=== PATIENT | male | born 1990 | race Caucasian/White ===

== ENCOUNTER → 2017-04-21 | Emergency (ER) | payer OTHER ==
--- NOTE | 2017-04-21 17:08 | PDOC ---
Rapid Medical Evaluation Time Seen by Provider: 04/21/17 17:06 Medical Evaluation: Allergies Allergy/AdvReac Type Severity Reaction Status Date / Time No Known Allergies Allergy Verified 04/21/17 17:06 04/21/17 17:06 26 year old male with history of anxiety/panic who presents complaining of headaches, blurred vision, nausea, lightheadedness, high blood pressure on home BP monitor. Took BP meds for about one week last year, but discontinued by PCP, told HTN was due to anxiety only. Has seen neurologist for headaches and has been to Urgent Care for dizziness. BP here 148/99. -EKG -To Main ED for further evaluation
[2017-04-21 17:10] VITALS: BMI 29.9
--- NOTE | 2017-04-21 19:27 | PDOC ---
History of Present Illness - General Chief Complaint: Lightheaded Stated Complaint: BLOOD PESSURE PROBLEM Time Seen by Provider: 04/21/17 17:06 History Source: Patient Exam Limitations: No Limitations - History of Present Illness Initial Comments: 04/21/17 19:22 26yo Male patient w/ PmHx: Anxiety/Panic disorder presents to ED c/o frequent h/ a x 2 months. Patient states he has been seen by Neurology Dr. Eren COULTER and was referred to physical therapy. Patient states he had an episode last week while driving; he experienced blurred vision, dizziness, and went to Urgent Care. Patient states his symptoms improved once he was evaluated. He also states he was prescribed Fioricet by his PCP but has not taken it because he was informed that it is habit forming. Patient has been using OTC Tylenol for symptoms management but it seem to not be working as effective. Patient reports at this time, his symptoms have gotten better and feels at ease. He denies CP, abd pain, n/v/d, fever, back pain, diff breathing, rash, change in vision or any other complaints at this time. Neurology- Dr. Jason Timing/Duration: reports: other (Ongoing for past 2 months.) Severity: Yes: mild Episode Description: See HPI Associated Symptoms: denies: denies symptoms, confusion, fatigue, fever/chills, insomnia, loss of consciousness, muscle spasms, nausea/vomiting, numbness in legs/feet, paresthesia, ringing in ears, seizures, sleepy, slurred speech, tingling in legs/feet, trouble walking, vision changes, weakness, other Past History - Travel Traveled outside of the country in the last 30 days: No Close contact w/someone who was outside of country & ill: No - Past Medical History Allergies/Adverse Reactions: Allergies Allergy/AdvReac Type Severity Reaction Status Date / Time No Known Allergies Allergy Verified 04/21/17 17:06 HTN: Yes (BORDER LINE) Psychiatric Problems: Yes (ANXEITY) - Psycho/Social/Smoking Cessation Hx Anxiety: No Suicidal Ideation: No Smoking History: Never smoked Have you smoked in the past 12 months: No Information on smoking cessation initiated: No Hx Alcohol Use: No Drug/Substance Use Hx: No Substance Use Type: None Neuro Specific PMHX - Complaint Specific PMHX Herniated Disk: No Laminectomy: No Migraine: No Multiple Sclerosis: No Neuropathy: No TIA: No Review of Systems - Review of Systems Able to Perform ROS?: Yes Is the patient limited Kiswahili proficient: No Constitutional: No: Chills, Fever, Unexplained wgt Loss HEENTM: No: Eye Pain, Blurred Vision, Recent change in vision, Double Vision, Nose Congestion, Throat Pain, Difficulty Swallowing Respiratory: No: Cough, Shortness of Breath, Stridor, Wheezing Cardiac (ROS): No: Chest Pain, Lightheadedness, Palpitations, Syncope, Chest Tightness ABD/GI: No: Diarrhea, Nausea, Poor Appetite, Poor Fluid Intake, Rectal Bleeding , Vomiting, Abdominal cramping : No: Burning, Dysuria, Discharge, Frequency, Flank Pain, Hematuria, Pain, Urgency, Testicular Swelling, Testicular Pain Musculoskeletal: No: Symptoms Reported, See HPI, Back Pain, Gout, Joint Pain, Joint Swelling, Muscle Pain, Muscle Weakness, Neck Pain, Joint Stiffness, Other Integumentary: No: Symptoms Reported, See HPI, Bruising, Change in Color, Change in Hair/Nails, Dryness, Erythema, Flushing, Lesions, Lumps, Pallor, Pruritus, Rash, Sweating, Other Neurological: Yes: Headache. No: Symptoms reported, See HPI, Numbness, Paresthesia, Pre-Existing Deficit, Seizure, Tingling, Tremors, Weakness, Unsteady Gait, Ataxia, Dizziness, Other Psychiatric: Yes: Anxiety. No: Depression, Frequent Crying, Stressors, Sleep Pattern Change, Emotional Problems, Mood Swings, Change in Appetite, Other Endocrine: No: Symptoms Reported, See HPI, Excessive Sweating, Flushing, Intolerance to Cold, Intolerance to Heat, Increased Hunger, Increased Thirst, Increased Urine, Unexplained Weight Gain, Unexplained Weight Loss, Change in Weight, Other Hematologic/Lymphatic: No: Symptoms Reported, See HPI, Anemia, Blood Clots, Easy Bleeding, Easy Bruising, Bleeding Diathesis, Lymph Node Abnormalities, Swollen Glands, Other All Other Systems: Reviewed and Negative *Physical Exam - Vital Signs Last Vital Signs Temp Pulse Resp BP Pulse Ox 97.9 F 73 18 148/99 100 04/21/17 17:07 04/21/17 17:07 04/21/17 17:07 04/21/17 17:07 04/21/17 17:07 - Physical Exam General Appearance: Yes: Nourished, Appropriately Dressed. No: Apparent Distress, Mild Distress, Moderate Distress, Severe Distress HEENT: positive: EOMI, GEOVANI, Normal ENT Inspection, Normal Voice, Symmetrical, TMs Normal, Pharynx Normal. negative: Photophobia, Pharyngeal Erythema, Tonsillar Exudate, Tonsillar Erythema, Nasal Congestion, Rhinorrhea, Orbits, TM Bulging, TM Dull, TM Erythema Neck: positive: Trachea midline, Normal Thyroid, Supple. negative: Rigid, Lymphadenopathy (R), Lymphadenopathy (L) Respiratory/Chest: positive: Lungs Clear, Normal Breath Sounds. negative: Chest Tender, Respiratory Distress, Accessory Muscle Use, Labored Respiration, Rapid RR, Rhonchi, Stridor, Wheezing Cardiovascular: positive: Regular Rhythm, Regular Rate Gastrointestinal/Abdominal: positive: Normal Bowel Sounds, Soft. negative: Tender, Flat, Distended, Guarding, Rebound, Tenderness Musculoskeletal: positive: Normal Inspection. negative: CVA Tenderness, Decreased Range of Motion, Vertebral Tenderness Extremity: positive: Normal Capillary Refill, Normal Inspection, Normal Range of Motion. negative: Pedal Edema, Swelling, Calf Tenderness, Erythema, Inflammation Integumentary: positive: Normal Color, Dry, Warm. negative: Erythema, Diaphoresis, Rash, Swelling Neurologic: positive: control panel builder II-XII NML intact, Fully Oriented, Alert, Normal Mood/ Affect, Normal Response, Motor Strength 5/5. negative: Numbness, Confused, Disoriented *DC/Admit/Observation/Transfer Diagnosis at time of Disposition: Migraine Qualifiers: Migraine type: without aura Status migrainosus presence: without status migrainosus Intractability: not intractable Qualified Code(s): G43.009 - Migraine without aura, not intractable, without status migrainosus - Discharge Dispostion Disposition: HOME Condition at time of disposition: Improved Admit: No - Referrals Referrals: Philly Cuevas MD [Primary Care Provider] - Armaan Horton MD [Staff Physician] - - Patient Instructions Printed Discharge Instructions: DI for Migraine, Migraine Headaches ( Alternative Therapy) Additional Instructions: FOLLOW UP WITH DR. CUEVAS (PCP) AND DR. JASON (NEUROLOGY) THIS WEEK FOR FURTHER EVALUATION. CALL TO SCHEDULE YOUR APPOINTMENT. DRINK PLENTY WATER, STAY HYDRATED. TAKE 1/2 TAB OF FIORICET FOR HEADACHE WITH PLENTY WATER AND REST. TRY DEEP BREATHING EXERCISES WHEN FEELING ANXIOUS. FOLLOW UP WITH DR. HORTON (PSYCHIATRY). CALL TO SCHEDULE APPOINTMENT TO ESTABLISH CARE. RETURN IF SYMPTOMS WORSEN, OR ANY CONCERNS FOR FURTHER EVALUATION. Print Language: PERUVIAN
--- NOTE | 2017-04-21 19:39 | PDOC ---
*Physical Exam - Vital Signs Last Vital Signs Temp Pulse Resp BP Pulse Ox 97.9 F 73 18 148/99 100 04/21/17 17:07 04/21/17 17:07 04/21/17 17:07 04/21/17 17:07 04/21/17 17:07 Medical Decision Making - Medical Decision Making 04/21/17 19:38 agree with care from [facility] Aaron *DC/Admit/Observation/Transfer Diagnosis at time of Disposition: Migraine Qualifiers: Migraine type: without aura Status migrainosus presence: without status migrainosus Intractability: not intractable Qualified Code(s): G43.009 - Migraine without aura, not intractable, without status migrainosus - Referrals Referrals: Armaan Horton MD [Staff Physician] - Philly Cuevas MD [Primary Care Provider] - - Patient Instructions Printed Discharge Instructions: Migraine Headaches (Alternative Therapy), DI for Migraine Additional Instructions: FOLLOW UP WITH DR. CUEVAS (PCP) AND DR. BOWERS (NEUROLOGY) THIS WEEK FOR FURTHER EVALUATION. CALL TO SCHEDULE YOUR APPOINTMENT. DRINK PLENTY WATER, STAY HYDRATED. TAKE 1/2 TAB OF FIORICET FOR HEADACHE WITH PLENTY WATER AND REST. TRY DEEP BREATHING EXERCISES WHEN FEELING ANXIOUS. FOLLOW UP WITH DR. HORTON (PSYCHIATRY). CALL TO SCHEDULE APPOINTMENT TO ESTABLISH CARE. RETURN IF SYMPTOMS WORSEN, OR ANY CONCERNS FOR FURTHER EVALUATION. Print Language: ROMANIAN - Post Discharge Activity
[2017-04-21 20:00] VITALS: BP 145/88; PULSE 59; TEMP 98
--- NOTE | 2017-04-22 11:49 | EKG ---
Test Reason : Blood Pressure : / mmHG Vent. Rate : 057 BPM Atrial Rate : 057 BPM P-R Int : 138 ms QRS Dur : 100 ms QT Int : 414 ms P-R-T Axes : 045 066 042 degrees QTc Int : 402 ms SINUS BRADYCARDIA OTHERWISE NORMAL ECG NO PREVIOUS ECGS AVAILABLE Confirmed by KENDAL TREVINO MD ([id number]) on 04/22/2017 11:49:32 AM Referred By: VIBHA Confirmed By:KENDAL TREVINO MD
== END | disposition home or self-care (01) ==
LOC: JER 16:57
DX: G43.009 Migraine without aura, not intractable, without status migrainosus (principal); F41.9 Anxiety disorder, unspecified
CPT/HCPCS: 93005; 93010; 99282-25

== ENCOUNTER 2018-07-28 19:12 | Emergency (ER) | payer OTHER ==
--- NOTE | 2018-07-28 19:36 | PDOC ---
Rapid Medical Evaluation Chief Complaint: Chest Pain Time Seen by Provider: 07/28/18 19:33 Medical Evaluation: Allergies Allergy/AdvReac Type Severity Reaction Status Date / Time No Known Allergies Allergy Verified 04/21/17 17:06 07/28/18 19:33 I have performed a brief in person evaluation of this patient. The patient presents with a CC of: "chest burning" HPI: Pt is a 28 YO male who states over the past week he has had chest "burning " worse with exercise and food. Pt was evaluated at , was given Carafate and a "reflux med." Pt states these medications are not helping. Pt denies hx of H. Pylori. Denies CV hx. Denies hx of IV drugs. PE: Skin: Clear Heart: RRR Lungs: Clear MS: Moves all extremities without difficulty Neuro: Appropriate affect Psych: appropriate affect I have ordered: CV protocol The patient will proceed to the ED for further evaluation. Discharge Disposition - Diagnosis Chest pain Qualifiers: Chest pain type: unspecified Qualified Code(s): R07.9 - Chest pain, unspecified - Referrals - Patient Instructions - Post Discharge Activity
[2018-07-28 19:37] VITALS: TEMP 97.7; BMI 28.4
[2018-07-28 20:09] LABS: BASO % 0.5 % (0-2.0); EOS % 1.3 % (0-4.5); HEMATOCRIT 42.4 % (35.4-49); HEMOGLOBIN 14.8 GM/dL (11.7-16.9); LYMPH % 22.4 % (8-40); MCH 31.4 pg (25.7-33.7); MCHC 34.8 g/dl (32.0-35.9); MEAN CELL VOLUME 90.2 fl (80-96); MEAN PLT VOLUME 7.6 fl (7.5-11.1); MONO % 6.4 % (3.8-10.2); NEUT % 69.4 % (42.8-82.8); PLATELET COUNT 309 K/MM3 (134-434); RDW 12.8 % (11.9-15.9); WHITE BLOOD COUNT 9.6 K/mm3 (4.0-10.0)
[2018-07-28 20:30] LABS: ALBUMIN 4.3 g/dl (3.4-5.0); ANION GAP 10 MMOL/L (8-16); BLOOD UREA NITROGEN 13 mg/dL (7-18); CALCIUM 9.2 mg/dL (8.5-10.1); CHLORIDE 106 mmol/L (98-107); CO2 25 mmol/L (21-32); CREATININE 0.8 mg/dL (0.55-1.3); POTASSIUM 4.2 mmol/L (3.5-5.1); SGOT/AST 17 U/L (15-37); SGPT/ALT 28 U/L (13-61); SODIUM 141 mmol/L (136-145)
[2018-07-28 20:34] LABS: ALK PHOS 67 U/L (45-117); BILIRUBIN,TOTAL 0.5 mg/dL (0.2-1); TOT PROT 7.9 g/dl (6.4-8.2)
[2018-07-28] MEDS ORDERED: METOCLOPRAMIDE HCL INJECTION 10 MG/2 ML VIAL IVPB ONE (20:44)
[2018-07-28] MEDS ORDERED: SODIUM CHLORIDE 1,000 ML IV STA (20:44)
[2018-07-28] MEDS ORDERED: FAMOTIDINE 20 MG/50 ML IVPB 20 MG/50 ML MG IVPB ONE ×2 (20:44→20:53)
[2018-07-28] MEDS ORDERED: MAG HYDROX/AL HYDROX/SIMETH 30 ML UNIT-DOSE CUP PO ONE (20:45)
--- NOTE | 2018-07-28 20:51 | PDOC ---
History of Present Illness - General Chief Complaint: Chest Pain Stated Complaint: CHEST PAIN Time Seen by Provider: 07/28/18 19:33 History Source: Patient Exam Limitations: No Limitations - History of Present Illness Initial Comments: 07/28/18 20:47 Patient is a 28-year-old male with past medical history of acid reflux, who presents to the emergency department today for burning chest pain. Patient states that this started approximately 1 week ago. He states that he was evaluated at an urgent care for her symptoms and was given Carafate and famotidine. He states that these medications have only helped slightly. He states that the pain is worse after eating and after exercising. He states he has changed his diet to avoid fatty foods and spicy foods. He also admits to headache. Denies fevers, chills, shortness of breath, difficulty breathing, nausea, vomiting, diarrhea, constipation, urinary symptoms. Past History - Travel Traveled outside of the country in the last 30 days: No Close contact w/someone who was outside of country & ill: No - Past Medical History Allergies/Adverse Reactions: Allergies Allergy/AdvReac Type Severity Reaction Status Date / Time No Known Allergies Allergy Verified 07/28/18 19:37 Home Medications: Ambulatory Orders Alprazolam [Xanax] 0.5 mg PO DAILY PRN 07/28/18 Famotidine 20 mg PO BID #20 tablet 07/28/18 Famotidine [Pepcid] 20 mg PO DAILY 07/28/18 Sucralfate [Carafate -] 1 gm PO DAILY 07/28/18 COPD: No DVT: No HTN: Yes (BORDER LINE) Psychiatric Problems: Yes (ANXEITY) - Suicide/Smoking/Psychosocial Hx Smoking History: Never smoked Have you smoked in the past 12 months: No Information on smoking cessation initiated: No Hx Alcohol Use: Yes (social) Drug/Substance Use Hx: No Substance Use Type: None Review of Systems - Review of Systems Able to Perform ROS?: Yes Comments:: 07/28/18 20:43 CONSTITUTIONAL: Absent: fever, chills, diaphoresis, generalized weakness, malaise, loss of appetite HEENT: Absent: rhinorrhea, nasal congestion, throat pain, throat swelling, difficulty swallowing, mouth swelling, ear pain, eye pain, visual Changes CARDIOVASCULAR: Present: chest pain Absent: loss of consciousness, palpitations, irregular heart rate, peripheral edema RESPIRATORY: Absent: cough, shortness of breath, dyspnea with exertion, orthopnea, wheezing, stridor, hemoptysis GASTROINTESTINAL: Absent: abdominal pain, abdominal distension, nausea, vomiting, diarrhea, constipation, melena, hematochezia GENITOURINARY: Absent: dysuria, frequency, urgency, hesitancy, hematuria, flank pain, genital pain MUSCULOSKELETAL: Absent: myalgia, arthralgia, joint swelling SKIN: Absent: rash, itching, pallor HEMATOLOGIC/IMMUNOLOGIC: Absent: easy bleeding, easy bruising, lymphadenopathy, frequent infections ENDOCRINE: Absent: unexplained weight gain, unexplained weight loss, heat intolerance, cold intolerance NEUROLOGIC: Present: headche Absent: focal weakness or paresthesias, dizziness, unsteady gait, seizure, mental status changes, bladder or bowel incontinence PSYCHIATRIC: Absent: anxiety, depression, suicidal or homicidal ideation, hallucinations. Is the patient limited Citizen Of [place] proficient: No *Physical Exam - Vital Signs Last Vital Signs Temp Pulse Resp BP Pulse Ox 97.7 F 67 17 160/96 100 07/28/18 19:33 07/28/18 19:33 07/28/18 19:33 07/28/18 19:33 07/28/18 19:33 - Physical Exam Comments: 07/28/18 20:44 GENERAL: Well developed, well nourished. Awake and alert. No acute distress. HEENT: Normocephalic, atraumatic. PERRLA, EOMI. No conjunctival pallor. Sclera are non- icteric. Moist mucous membranes. Oropharynx is clear. NECK: Supple. Full ROM. No JVD. Carotid pulses 2+ and symmetric, without bruits. No thyromegaly. No lymphadenopathy. CARDIOVASCULAR: Regular rate and rhythm. No murmurs, rubs, or gallops. Distal pulses are 2+ and symmetric. PULMONARY: No evidence of respiratory distress. Lungs clear to auscultation bilaterally. No wheezing, rales or rhonchi. ABDOMINAL: Soft. Non-tender. Non-distended. No rebound or guarding. No organomegaly. Normoactive bowel sounds. MUSCULOSKELETAL Normal range of motion at all joints. No bony deformities or tenderness. No CVA tenderness. EXTREMITIES: No cyanosis. No clubbing. No edema. No calf tenderness. SKIN: Warm and dry. Normal capillary refill. No rashes. No jaundice. NEUROLOGICAL: Alert, awake, appropriate. Cranial nerves 2-12 intact. No deficits to light touch and temperature in face, upper extremities and lower extremities. No motor deficits in the in face, upper extremities and lower extremities. Normoreflexic in the upper and lower extremities. Normal speech. Toes are down- going bilaterally. Gait is normal without ataxia. PSYCHIATRIC: Cooperative. Good eye contact. Appropriate mood and affect. 07/28/18 20:51 ED Treatment Course - LABORATORY CBC & Chemistry Diagram: 07/28/18 20:01 07/28/18 20:01 - ADDITIONAL ORDERS Additional order review: Laboratory Results 07/28/18 20:01 Sodium 141 Potassium 4.2 Chloride 106 Carbon Dioxide 25 Anion Gap 10 BUN 13 Creatinine 0.8 Creat Clearance w eGFR > 60 Calcium 9.2 Total Bilirubin 0.5 AST 17 ALT 28 Alkaline Phosphatase 67 Creatine Kinase 160 Troponin I < 0.02 Total Protein 7.9 Albumin 4.3 07/28/18 20:01 RBC 4.70 MCV 90.2 MCHC 34.8 RDW 12.8 MPV 7.6 Neutrophils % 69.4 Lymphocytes % 22.4 Monocytes % 6.4 Eosinophils % 1.3 Basophils % 0.5 Medical Decision Making - Medical Decision Making 07/28/18 20:51 Patient is a 28-year-old male with past medical history of acid reflux, who presents to the emergency department today for burning chest pain x 1 week. -Pt states this feels like his reflux -Pt also suffers from migraines. Feels like his typical migraine. No acute focal neuro findings or red flags to consider CT. Will defer at this time. -Taking famotidine and carafate with little relief of symptoms -Pt states he has GI appointment next week with Dr. Weaver. -Labs ordered by [facility]. -No leukocytosis, Trop WNL -Will treat symptoms and re-evaluate. 07/28/18 21:51 -Pt reports relief of symptoms (headache and GI) with IV medications -Explained to pt he needs to take the famotidine twice a day for one week, despite how he is feeling -Most likely reflux -DC home with cards follow up. Pt already has GI follow up. -I discussed the physical exam findings, ancillary test results and final diagnoses with the patient. I answered all of the patient's questions. The patient was satisfied with the care received and felt comfortable with the discharge plan and treatment plan. The Patient agrees to follow up with the primary care physician/specialist within 24-72 hours. Return precautions were given. *DC/Admit/Observation/Transfer Diagnosis at time of Disposition: Atypical chest pain Acid reflux Qualifiers: Esophagitis presence: esophagitis presence not specified Qualified Code(s): K21.9 - Gastro-esophageal reflux disease without esophagitis - Discharge Dispostion Disposition: HOME Condition at time of disposition: Stable - Referrals Referrals: Jose R Masters MD [Primary Care Provider] - Kurtis Sanchez MD [Staff Physician] - - Patient Instructions Printed Discharge Instructions: DI for Gastroesophageal Reflux Disease (GERD) Additional Instructions: EKG and lab work were normal today. You most likely have reflux. Please take the famotidine twice a week day for one week to help reduce her symptoms. Take the medication as prescribed despite how you are feeling You may also take Mylanta as needed for reflux. Follow the instructions on the bottle. Please keep your appointment with GI as previously planned. If her symptoms are not resolving a cardiology follow-up has been provided free was well. Return to the emergency department if you have increased pain, vomiting, worsening chest pain, any changes in her symptoms. - Post Discharge Activity Forms/Work/School Notes: Back to Work
[2018-07-28 20:53] LABS: GLUCOSE,RANDOM 89 mg/dL (74-106)
[2018-07-28] MEDS ORDERED: MAG HYDROX/AL HYDROX/SIMETH 30 ML UNIT-DOSE CUP ONE (20:53)
[2018-07-28] MEDS ORDERED: METOCLOPRAMIDE HCL INJECTION 10 MG/2 ML VIAL ONE (20:53)
[2018-07-28 21:56] VITALS: BP 139/92; PULSE 64
--- NOTE | 2018-07-29 10:28 | EKG ---
Test Reason : Blood Pressure : / mmHG Vent. Rate : 063 BPM Atrial Rate : 063 BPM P-R Int : 140 ms QRS Dur : 094 ms QT Int : 374 ms P-R-T Axes : 049 056 039 degrees QTc Int : 382 ms NORMAL SINUS RHYTHM NORMAL ECG WHEN COMPARED WITH ECG OF 21-APR-2017 17:20, NO SIGNIFICANT CHANGE WAS FOUND Confirmed by JOEL AMOS MD ([id number]) on 07/29/2018 10:28:02 AM Referred By: Confirmed By:JOEL AMOS MD
== END 2018-07-28 22:14 | disposition home or self-care (01) ==
LOC: JER 19:12
PROC: 3E033GC Introduction of Other Therapeutic Substance into Peripheral Vein, Percutaneous Approach (ICD-10-PCS; principal; 2018-07-28)
PROC: 3E033GC Introduction of Other Therapeutic Substance into Peripheral Vein, Percutaneous Approach (ICD-10-PCS; 2018-07-28)
PROC: 3E033GC Introduction of Other Therapeutic Substance into Peripheral Vein, Percutaneous Approach (ICD-10-PCS; 2018-07-28)
DX: K21.9 Gastro-esophageal reflux disease without esophagitis (principal); R07.89 Other chest pain
CPT/HCPCS: 36415; 71046-TC-FY; 80053; 82550; 82553; 84484; 85025; 93005; 93010; 96365; 96375; 99284-25; J7030

== ENCOUNTER 2018-11-27 23:53 | Emergency (ER) | payer OTHER ==
[2018-11-28 00:15] VITALS: BP 138/76; PULSE 64; TEMP 98.2; BMI 28.7
[2018-11-28] MEDS ORDERED: MAG HYDROX/AL HYDROX/SIMETH 30 ML UNIT-DOSE CUP PO ONE (00:29)
[2018-11-28] MEDS ORDERED: DICYCLOMINE HCL 20 MG TABLET PO ONE (00:29)
[2018-11-28] MEDS ORDERED: LIDOCAINE VISCOUS 2% ORAL/TOP 20 ML UNIT-DOSE CUP MM ONE ×2 (00:30→01:28)
--- NOTE | 2018-11-28 00:41 | PDOC ---
History of Present Illness - General Chief Complaint: Chest Pain Stated Complaint: CHEST PAIN Time Seen by Provider: 11/28/18 00:03 History Source: Patient Exam Limitations: No Limitations - History of Present Illness Initial Comments: 11/28/18 00:35 Pt is a 28yo M with PMH of GERD presenting to ED with chest pain which pt describes as GERD. He had similar symptoms months ago and was told he had GERD. Pt says it feels the same but more intense. He usually gets the burning sensation after he works out and when he is laying down. He states that he waits at least 4 hours before he works out after he eats and does not lay down after eating right away. He has a prescription for Protonix which he takes when he has onset of his symptoms. He has a GI doctor which he states he is going to make an appointment with soon. Denies palpitations, SOB, syncope, cough, n/v/d, abdominal pain, fevers, chills, recent travel, leg swelling. Denies smoking, cocaine, IV drug use. Past History - Past Medical History Allergies/Adverse Reactions: Allergies Allergy/AdvReac Type Severity Reaction Status Date / Time No Known Allergies Allergy Verified 11/28/18 00:09 Home Medications: Ambulatory Orders Alprazolam [Xanax] 0.5 mg PO DAILY PRN 07/28/18 Famotidine 20 mg PO BID #20 tablet 07/28/18 Famotidine [Pepcid] 20 mg PO DAILY 07/28/18 Sucralfate [Carafate -] 1 gm PO DAILY 07/28/18 Pantoprazole Sodium [Protonix -] 20 mg PO BID #14 tablet.ec 11/28/18 COPD: No DVT: No HTN: Yes (BORDER LINE) Psychiatric Problems: Yes (ANXEITY) - Suicide/Smoking/Psychosocial Hx Smoking History: Never smoked Have you smoked in the past 12 months: No Information on smoking cessation initiated: No Hx Alcohol Use: No Drug/Substance Use Hx: No Substance Use Type: None Review of Systems - Review of Systems Constitutional: No: Chills, Fever, Loss of Appetite HEENTM: No: Symptoms Reported Respiratory: No: Cough, Shortness of Breath, Wheezing Cardiac (ROS): Yes: Chest Pain (burning). No: Lightheadedness, Palpitations, Syncope ABD/GI: No: Blood Streaked Bowels, Constipated, Diarrhea, Nausea, Vomiting, Abdominal cramping : No: Symptoms Reported Musculoskeletal: No: Symptoms Reported Integumentary: No: Symptoms Reported Neurological: No: Symptoms reported *Physical Exam - Vital Signs Last Vital Signs Temp Pulse Resp BP Pulse Ox 98.2 F 64 18 138/76 100 11/28/18 00:00 11/28/18 00:00 11/28/18 00:00 11/28/18 00:00 11/28/18 00:00 - Physical Exam General Appearance: Yes: Nourished, Appropriately Dressed. No: Apparent Distress HEENT: positive: EOMI, GEOVANI, Normal ENT Inspection Neck: positive: Trachea midline, Supple. negative: Lymphadenopathy (R), Lymphadenopathy (L) Respiratory/Chest: positive: Lungs Clear, Normal Breath Sounds. negative: Crackles, Rales, Rhonchi, Stridor Cardiovascular: positive: Regular Rhythm, Regular Rate, S1, S2. negative: Edema , JVD, Murmur Gastrointestinal/Abdominal: positive: Normal Bowel Sounds, Soft. negative: Distended, Guarding, Rebound, Tenderness Musculoskeletal: negative: CVA Tenderness Extremity: positive: Normal Capillary Refill Integumentary: positive: Normal Color, Dry, Warm Neurologic: positive: attendance officer II-XII NML intact, Fully Oriented, Alert, Normal Mood/ Affect, Normal Response, Motor Strength 5/5 Moderate Sedation - Procedure Monitoring Vital Signs: Procedure Monitoring Vital Signs Temperature 98.2 F 11/28/18 00:00 Pulse Rate 64 11/28/18 00:00 Respiratory Rate 18 11/28/18 00:00 Blood Pressure 138/76 11/28/18 00:00 O2 Sat by Pulse Oximetry (%) 100 11/28/18 00:00 Medical Decision Making - Medical Decision Making 11/28/18 00:38 Pt is a 28yo M with PMH of GERD presenting to ED with chest pain which pt describes as GERD. Vitals: wnl EKG done at triage: sinus bradycardia (59bpm), no LD elevations or depressions. Similar to prior EKG done 07/28. Pt describes pain as previous GERD. Low suspicion for ACS, PE in an otherwise healthy and active individual. PERC negative. low suspicion for infectious process. Labs and imaging not necessary at this time. -Maalox, Bentyl and Viscous Lidocaine. Will reevaluate. 11/28/18 01:08 Rx for Protonix BID 20mg sent to pharmacy. 11/28/18 01:50 Pt states he feels "much better". Pt is hemodynamically stable and has GERD. Chest pain is most likely due to GERD. Has GI doctor and can make appointment for further evaluation. Can be dc home. given strict return precautions. *DC/Admit/Observation/Transfer Diagnosis at time of Disposition: Chest pain Qualifiers: Chest pain type: other chest pain Qualified Code(s): R07.89 - Other chest pain GERD (gastroesophageal reflux disease) Qualifiers: Esophagitis presence: esophagitis presence not specified Qualified Code(s): K21.9 - Gastro-esophageal reflux disease without esophagitis - Discharge Dispostion Disposition: HOME Condition at time of disposition: Improved Decision to Admit order: No - Prescriptions Prescriptions: Pantoprazole Sodium [Protonix -] 20 mg PO BID #14 tablet.ec - Referrals - Patient Instructions Printed Discharge Instructions: DI for Gastroesophageal Reflux Disease (GERD), DI for Atypical Chest Pain Additional Instructions: You were seen in the emergency room for chest pain. It seems like it is due to GERD. You were given medications here in the emergency room to help reduce your symptoms. Please take Protonix daily in the morning and at night to prevent your symptoms. A prescription was sent to your pharmacy. You can also take Maalox or Mylanta (found over the counter) and take it when you are having reflux. I highly recommend that you make an appointment with your GI doctor in the next few days for further evaluation and management of your symptoms. Come back to the emergency room if pain gets worse, you have difficulty breathing, you have abdominal pain, you start vomiting or if any new concerning symptom develops. Thank you - Post Discharge Activity
--- NOTE | 2018-11-28 01:05 | PDOC ---
Attending Attestation - Resident Resident Name: Sa Марияira - ED Attending Attestation I have performed the following: I have examined & evaluated the patient, The case was reviewed & discussed with the resident, I agree w/resident's findings & plan - HPI HPI: 11/28/18 01:02 28YOM, with a significant past medical history of GERD, who presents to the emergency department with, burning chest pain x 2 weeks, intermittently throughout day. No exacerbating or alleviating factors. Diet compliant, no spicy or fatty foods. Denies ETOH intake or smoking. Patient notes he only takes his GERD medication as needed (protonix). History of similar sx, has seen his own GI specialist, no known history of h.pylori. He denies any recent palpitations or shortness of breath. He denies any recent fevers, chills, headache or dizziness. He denies any recent nausea, vomit, diarrhea or constipation. He denies any recent dysuria, frequency, urgency or hematuria. No sick contacts or travel. No new changes in medications. Allergies: NKA Past Medical History: GERD Social history: Lives with family. No smoking. No alcohol. No illicit drugs. Surgical history: None 11/28/18 01:03 - Physicial Exam PE: 11/28/18 01:03 NAD, well appearing, PERRL, EOMI, MMM, nl conjunctiva, anicteric; neck supple. lungs clear, RRR, abdomen soft nontender. GUERRA x4, no focal neuro deficits. No peripheral edema. normal color for ethnicity, WWP. - Medical Decision Making 11/28/18 01:02 See HPI for details DDx gastritis, PUD, dyspepsia, GERD. doubt cardiac or ACS or electrolyte abnormalities. Vital signs reviewed, wnl. Prior notes reviewed, including admissions, discharges and consultations. no labs indicated EKG normal sinus rhythm, no interval abnormalities, narrow QRS, ST and T wave segments and morphology normal. ED course: GI cocktail, with relief of sx. Abdomen soft and nontender. Doubt abdominal or cardiac etiology/pathology. feels improved. has close followup with PMD and GI. dietary modifications and compliance with GERD management discussed Dispo: Pt informed of my clinical impression, treatment recommendations and disposition plan. All questions answered to patient's satisfaction and expressed understanding and comfort with this. Reasons for returning to the ED sooner discussed with the patient otherwise, follow up with primary care physician. At the time of discharge, the patient is alert, clinically improved, tolerating po and verbalizes understanding of instructions. Patient does not suffer from an acute life-threatening medical condition at this time he is safe for outpatient follow-up. GI follow up for EGD/h pylori testing. 11/28/18 01:03 Heart Score/ECG Review - ECG Impressions Normal ECG: Yes Comment:: 11/28/18 01:04 EKG normal sinus rhythm, no interval abnormalities, narrow QRS, ST and T wave segments and morphology normal.
[2018-11-28] MEDS ORDERED: MAG HYDROX/AL HYDROX/SIMETH 30 ML UNIT-DOSE CUP ONE (01:17)
[2018-11-28] MEDS ORDERED: DICYCLOMINE HCL 10 MG CAPSULE ONE (01:17)
[2018-11-28] MEDS ORDERED: LIDOCAINE VISCOUS 2% ORAL/TOP 20 ML UNIT-DOSE CUP ONE (01:17)
--- NOTE | 2018-11-29 19:12 | EKG ---
Test Reason : Blood Pressure : / mmHG Vent. Rate : 057 BPM Atrial Rate : 057 BPM P-R Int : 146 ms QRS Dur : 098 ms QT Int : 390 ms P-R-T Axes : 048 064 042 degrees QTc Int : 379 ms SINUS BRADYCARDIA POSSIBLE LEFT ATRIAL ENLARGEMENT BORDERLINE ECG WHEN COMPARED WITH ECG OF 28-JUL-2018 19:28, NO SIGNIFICANT CHANGE WAS FOUND Confirmed by KENDAL TREVINO MD ([id number]) on 11/29/2018 7:12:07 PM Referred By: Confirmed By:KENDAL TREVINO MD
== END 2018-11-28 02:40 | disposition home or self-care (01) ==
LOC: JER 23:53
DX: K21.9 Gastro-esophageal reflux disease without esophagitis (principal); R07.9 Chest pain, unspecified; I10 Essential (primary) hypertension; F41.9 Anxiety disorder, unspecified
CPT/HCPCS: 93005; 93010; 99281-25

== ENCOUNTER 2019-02-02 18:32 | Emergency (ER) | payer OTHER ==
[2019-02-02 18:44] VITALS: BP 153/92; PULSE 60; TEMP 97.9; BMI 28.7
[2019-02-02] MEDS ORDERED: MAG HYDROX/AL HYDROX/SIMETH 30 ML UNIT-DOSE CUP PO ONE (19:22)
--- NOTE | 2019-02-02 19:25 | PDOC ---
History of Present Illness - General History Source: Patient Exam Limitations: No Limitations <Armida Wilder - Last Filed: 02/02/19 20:00> - General History Source: Patient Exam Limitations: No Limitations <Nicolle Law - Last Filed: 02/02/19 22:50> - General Chief Complaint: Chest Pain Stated Complaint: CHEST PAIN X 2 DAYS Time Seen by Provider: 02/02/19 19:20 - History of Present Illness Initial Comments: 02/02/19 19:55 The patient is a 28-year-old male, with a past medical history of GERD and anxiety, who presents to the ED with migratory chest pain that began on Friday morning. The patient states that he went out binge drinking with friends on Friday night. He woke up on Friday morning with diffuse chest pain that he describes as intermittent, burning/stabbing in sensation, lasting 10-20 minutes before resolving on its own, with no radiation to his arms or back, and accompanied by shortness of breath and anxiety. The patient was seen in the ED on 11/28/18 with a similar burning pain secondary to his GERD. Patient has an upcoming appointment with his GI doctor next week. He states that his pain feels the same now but is more intense. He reports taking Xanax yesterday with mild relief of his symptoms. The patient began to feel the pain today as he was leaving work and came to the ED for further evaluation. The patient denies any fevers, chills, nausea, vomiting, diarrhea, or abdominal pain. Denies any urinary symptoms. Allergies: NKA Social History: Reports social drinking. Denies any tobacco or drug use. Surgical History: None (Armida Wilder) Past History <Armida Wilder - Last Filed: 02/02/19 20:00> - Past Medical History COPD: No DVT: No GI Disorders: Yes (ACID REFLUX) HTN: Yes (BORDER LINE) Psychiatric Problems: Yes (ANXEITY) - Suicide/Smoking/Psychosocial Hx Smoking History: Never smoked Have you smoked in the past 12 months: No Hx Alcohol Use: Yes (OCCASIONAL) Drug/Substance Use Hx: No Substance Use Type: None <Nicolle Lawzander - Last Filed: 02/02/19 22:50> - Past Medical History Allergies/Adverse Reactions: Allergies Allergy/AdvReac Type Severity Reaction Status Date / Time No Known Allergies Allergy Verified 02/02/19 18:35 Home Medications: Ambulatory Orders Alprazolam [Xanax] 0.5 mg PO DAILY PRN 07/28/18 Famotidine [Pepcid] 20 mg PO DAILY 07/28/18 Pantoprazole Sodium [Protonix -] 20 mg PO BID #14 tablet.ec 11/28/18 Review of Systems - Review of Systems Able to Perform ROS?: Yes <Armida Wilder - Last Filed: 02/02/19 20:00> <Nicolle Law - Last Filed: 02/02/19 22:50> - Review of Systems Comments:: 02/02/19 19:56 General/Constitutional: no fevers or chills. No weakness. No sweats. HEENT: no headache or dizziness. No congestion. CVS: (+)Chest pain. no palpitations or syncope. Resp: (+)SOB. no wheezing or hemoptysis. No cough. Gastrointestinal: no abdominal pain, nausea or vomiting or diarrhea. Genitourinary: no urinary sx, hematuria, urgency or frequency. MUSCULOSKELETAL: No joint pain and swelling. No neck or back pain. SKIN: no redness or skin changes, no discharge, no rash. No wounds. HEMATOLOGIC/LYMPHATIC: No anemia, easy bruising/bleeding, or history of blood clots. NEUROLOGIC: No headache, dizziness, LOC or altered mental status. No weakness, numbness or tingling. Allergic/Immunologic: no allergies All other systems reviewed and negative, or as documented in HPI. (Armida Wilder) *Physical Exam <Armida Wilder - Last Filed: 02/02/19 20:00> <Nicolle Law - Last Filed: 02/02/19 22:50> - Vital Signs Last Vital Signs Temp Pulse Resp BP Pulse Ox 97.9 F 60 18 153/92 100 02/02/19 18:33 02/02/19 18:33 02/02/19 18:33 02/02/19 18:33 02/02/19 18:33 - Physical Exam Comments: 02/02/19 19:57 General: Well appearing, awake and alert, NAD. HEENT: NCAT, PERRL, EOMI, clear conjunctiva, anicteric, moist mucus membranes, clear oropharynx, no oral lesions.. Neck: neck supple, FROM Resp: CTAB, normal and even respirations, no respiratory distress CVS: RRR, no murmurs, 2+ peripheral pulses throughout, no peripheral edema Abdomen: soft, NTND, no rebound or guarding. No CVAT. Back: nontender, normal inspection and ROM MSK: no edema, GUERRA x4, ROM intact. No clubbing or cyanosis. normal bulk and tone. Extremities: no calf tenderness Neuro: alert, oriented appropriately; no focal neurologic deficits Skin: warm and well perfused, cap refill <2 sec, normal color (Armida Wilder) Heart Score/ECG Review <Armida Wilder - Last Filed: 02/02/19 20:00> #1 ECG reviewed & interpreted by me at: 18:50 General ECG Interpretation: Sinus Rhythm, No acute ischemic changes Compared to previous ECG there are: No significant change <Nicolle Law - Last Filed: 02/02/19 22:50> #1 02/02/19 19:25 EKG normal sinus bradycardia at 53 bpm, no interval abnormalities, narrow QRS, ST and T wave segments and morphology normal. upsloping ST segments appearing like benign early repolarization similar to prior EKG. (Nicolle Law) ED Treatment Course - LABORATORY CBC & Chemistry Diagram: 02/02/19 19:30 02/02/19 19:30 <Armida Wilder - Last Filed: 02/02/19 20:00> - LABORATORY CBC & Chemistry Diagram: 02/02/19 19:30 02/02/19 19:30 <Nicolle Law - Last Filed: 02/02/19 22:50> - ADDITIONAL ORDERS Additional order review: Laboratory Results 02/02/19 19:30 Sodium 136 Potassium 4.0 Chloride 103 Carbon Dioxide 26 Anion Gap 7 L BUN 12 Creatinine 0.8 Creat Clearance w eGFR 116.85 Random Glucose 102 Calcium 9.2 Total Bilirubin 0.5 AST 27 ALT 20 Alkaline Phosphatase 57 Total Protein 7.0 Albumin 4.1 Lipase 156 02/02/19 19:30 RBC 4.48 MCV 92.1 MCHC 33.1 RDW 12.6 MPV 8.4 Neutrophils % 62.0 Lymphocytes % 27.0 Monocytes % 7.8 Eosinophils % 2.4 Basophils % 0.8 - RADIOLOGY Radiology Studies Ordered: Category Date Time Status CHEST PA & LAT [RAD] Stat Radiology 02/02/19 19:23 Completed - Medications Given in the ED: ED Medications Discontinued Medications Generic Name Dose Route Start Last Admin Trade Name Jayden PRN Reason Stop Dose Admin Al Hydroxide/Mg Hydroxide 30 ml 02/02/19 19:22 02/02/19 19:44 Mylanta Oral Suspension - PO 02/02/19 19:23 30 ml ONCE ONE Administration Famotidine/Sodium Chloride 20 mg in 50 mls @ 100 mls/hr 02/02/19 19:30 19:45 Pepcid 20 Mg Premixed Ivpb - IVPB 02/02/19 19:59 100 mls/hr ONCE ONE Administration Medical Decision Making <Armida Wilder - Last Filed: 02/02/19 20:00> <Nicolle Law - Last Filed: 02/02/19 22:50> - Medical Decision Making 02/02/19 19:24 I, Nicolle Law MD, attest that this document has been prepared under my direction and personally reviewed by me in its entirety. I further attest, that it accurately reflects all work, treatment, procedures and medical decision -making performed by me. See HPI for details dDx. pancreatitis, hepatitis, costochondritis, electrolyte/metabolic derangements, anxiety, Gastritis/PUD, GERD flare Vital signs reviewed, wnl. Prior notes reviewed, including admissions, discharges and consultations. laboratory results and imaging reviewed, basic labs and lytes wnl, LFTs/lipase_wnl CXR_no acute chest pathology EKG normal sinus bradycardia at 53 bpm, no interval abnormalities, narrow QRS, ST and T wave segments and morphology normal. upsloping ST segments appearing like benign early repolarization similar to prior EKG. ED course: no acute events, most likely ETOH induced gastritis/GERD from binge drinking doubt cardiac based on clinical presentation, EKG unchanged and appears as benign early repol. also migratory, sharp and nonradiating, described more as burning. abdomen soft and benign. EKG with early repol, similar to prior has GI and PMD followup appropriately feels improved here with GI cocktail and hydration. pain improved, remains well appearing Dispo: Pt informed of my clinical impression, treatment recommendations and disposition plan. All questions answered to patient's satisfaction and expressed understanding and comfort with this. Reasons for returning to the ED sooner discussed with the patient otherwise, follow up with primary care physician. At the time of discharge, the patient is alert, clinically improved, tolerating po and verbalizes understanding of instructions. Patient does not suffer from an acute life-threatening medical condition at this time he is safe for outpatient follow-up. 02/02/19 21:09 02/02/19 22:50 (Nicolle Law) *DC/Admit/Observation/Transfer <Armida Wilder - Last Filed: 02/02/19 20:00> - Discharge Dispostion Decision to Admit order: No <Nicolle Law - Last Filed: 02/02/19 22:50> Diagnosis at time of Disposition: Chest pain, Burning chest pain - Discharge Dispostion Disposition: HOME Condition at time of disposition: Stable - Referrals Referrals: Jose R Masters MD [Primary Care Provider] - - Patient Instructions Printed Discharge Instructions: DI for Atypical Chest Pain Additional Instructions: 1) Please follow-up with your primary care doctor in the next 1-2 days. Please call tomorrow for for any urgent issues. Avoid triggers and stress. avoid binge drinking of alcohol which can produce gastritis and atypical chest discomfort. 2) You were given a copy of the tests performed today. Please bring the results with you and review them with your primary care doctor. Your laboratory / imaging results were normal, 3) If you have any worsening of symptoms or any other concerns please return to the ED immediately. Return if worsening symptoms including fevers, headache, vomiting, visual or hearing disturbances, abdominal pain, chest pain, shortness of breath, syncope, dehydration, inability to take things by mouth/vomiting, altered mental status, or worsening concerning symptoms. 4) Please continue taking your home medications as directed. your medications on discharge include_ . side effects may include upset stomach, abdominal pain, vomiting, or diarrhea. do not drink alcohol with your medications. Stay well hydrated and rest adequately. an appointment. If you cannot follow-up with your primary care doctor please return to the ED - Post Discharge Activity - Attestations Scribe Attestion: 02/02/19 19:57 Documentation prepared by Armida Wilder, acting as lead medical technologist for Nicolle Law MD. (Armida Wilder)
[2019-02-02] MEDS ORDERED: FAMOTIDINE 20 MG/50 ML IVPB 20 MG/50 ML MG IVPB ONE ×2 (19:30→19:44)
[2019-02-02] MEDS ORDERED: MAG HYDROX/AL HYDROX/SIMETH 30 ML UNIT-DOSE CUP ONE (19:44)
[2019-02-02 20:04] LABS: BASO % 0.8 % (0-2.0); EOS % 2.4 % (0-4.5); HEMATOCRIT 41.3 % (35.4-49); HEMOGLOBIN 13.7 GM/dl (11.7-16.9); MCH 30.5 pg (25.7-33.7); MCHC 33.1 g/dl (32.0-35.9); MEAN CELL VOLUME 92.1 fl (80-96); MEAN PLT VOLUME 8.4 fl (7.5-11.1); MONO % 7.8 % (3.8-10.2); PLATELET COUNT 291 K/MM3 (134-434); RBC 4.48 M/mm3 (4.00-5.60); RDW 12.6 % (11.9-15.9); WHITE BLOOD COUNT 7.6 K/mm3 (4.0-10.8)
[2019-02-02 20:12] LABS: ALBUMIN 4.1 g/dl (3.4-5.0); ALK PHOS 57 U/L (45-117); BILIRUBIN,TOTAL 0.5 mg/dl (0.2-1); BLOOD UREA NITROGEN 12 mg/dl (7-18); CALCIUM 9.2 mg/dl (8.5-10); CHLORIDE 103 mmol/L (98-107); CO2 26 mmol/L (21-32); CREATININE 0.8 mg/dl (0.55-1.3); GLUCOSE,RANDOM 102 mg/dl (74-106); SGOT/AST 27 U/L (15-37); SGPT/ALT 20 U/L (13-61)
[2019-02-02 20:20] LABS: ANION GAP 7 MMOL/L (8-16); SODIUM 136 mmol/L (136-145)
[2019-02-02 22:06] LABS: LIPASE 156 U/L (73-393)
--- NOTE | 2019-02-03 09:26 | EKG ---
Test Reason : Blood Pressure : / mmHG Vent. Rate : 053 BPM Atrial Rate : 053 BPM P-R Int : 142 ms QRS Dur : 094 ms QT Int : 406 ms P-R-T Axes : 051 067 054 degrees QTc Int : [address] ELEVATION, CONSIDER EARLY REPOLARIZATION, PERICARDITIS, OR INJURY Confirmed by JOEL AMOS MD ([id number]) on 02/03/2019 9:26:14 AM Referred By: DR PA Confirmed By:JOEL AMOS MD
== END 2019-02-02 21:20 | disposition home or self-care (01) ==
LOC: FER 18:32
PROC: 3E033GC Introduction of Other Therapeutic Substance into Peripheral Vein, Percutaneous Approach (ICD-10-PCS; principal; 2019-02-02)
DX: R07.9 Chest pain, unspecified (principal); R20.8 Other disturbances of skin sensation
CPT/HCPCS: 36415; 71046-TC-FY; 80053; 83690; 85025; 93005; 96365; 99283-25

== ENCOUNTER 2019-04-18 04:49 | Emergency (ER) | payer OTHER | END 2019-04-18 07:03 | disposition home or self-care (01) | LOC: JER 04:49 ==

== ENCOUNTER 2019-12-09 17:48 | Emergency (ER) | payer SELFPAY ==
[2019-12-09 18:01] VITALS: BP 165/109; PULSE 82; TEMP 98.5; BMI 29.9
--- NOTE | 2019-12-09 18:16 | PDOC ---
History of Present Illness - General Chief Complaint: Cold Symptoms Stated Complaint: FLU LIKE SYMPTOMS Time Seen by Provider: 12/09/19 17:58 History Source: Patient Exam Limitations: No Limitations - History of Present Illness Initial Comments: 29 yo M history anxiety, borderline HTN presents with flu-like symptoms for past few days. He has had fevers for 3-4 days, now improving, chest discomfort, difficulty breathing. +Nasal congestion. Denies leg swelling, dec urination, leg pain. No known sick contacts. Past History - Past Medical History Allergies/Adverse Reactions: Allergies Allergy/AdvReac Type Severity Reaction Status Date / Time No Known Allergies Allergy Verified 12/09/19 17:49 COPD: No DVT: No GI Disorders: Yes (ACID REFLUX) HTN: Yes (BORDER LINE) Psychiatric Problems: Yes (ANXEITY) - Psycho Social/Smoking Cessation Hx Smoking History: Never smoked Have you smoked in the past 12 months: No Information on smoking cessation initiated: No Hx Alcohol Use: No Drug/Substance Use Hx: No Substance Use Type: None Review of Systems - Review of Systems Able to Perform ROS?: Yes Comments:: GENERAL/CONSTITUTIONAL: +Fever/chills. No weakness. HEAD, EYES, EARS, NOSE AND THROAT: No change in vision. No ear pain or discharge. No sore throat. +Nasal congestion CARDIOVASCULAR: +Chest pain and shortness of breath. RESPIRATORY: No cough, wheezing, or hemoptysis. GASTROINTESTINAL: No nausea, vomiting, diarrhea or constipation. GENITOURINARY: No dysuria, frequency, or change in urination. MUSCULOSKELETAL: No joint or muscle swelling or pain. No neck or back pain. SKIN: No rash. NEUROLOGIC: No headache, vertigo, loss of consciousness, or change in strength/ sensation. ENDOCRINE: No increased thirst. No abnormal weight change. HEMATOLOGIC/LYMPHATIC: No anemia, easy bleeding, or history of blood clots. ALLERGIC/IMMUNOLOGIC: No hives or skin allergy. *Physical Exam - Vital Signs Last Vital Signs Temp Pulse Resp BP Pulse Ox 98.5 F 82 20 165/109 H 100 12/09/19 17:49 12/09/19 17:49 12/09/19 17:49 12/09/19 17:49 12/09/19 17:49 - Physical Exam GENERAL: Awake, alert, and fully oriented, in no acute distress HEAD: No signs of trauma EYES: PERRLA, EOMI, sclera anicteric, conjunctiva clear ENT: Auricles normal inspection, hearing grossly normal, nares patent, oropharynx erythematous without exudates. Moist mucosa. +Boggy turbinates B/L. NECK: Normal ROM, supple, no lymphadenopathy, JVD, or masses LUNGS: Breath sounds equal, clear to auscultation bilaterally. No wheezes, and no crackles HEART: Regular rate and rhythm, normal S1 and S2, no murmurs, rubs or gallops ABDOMEN: Soft, nontender, normoactive bowel sounds. No guarding, no rebound. No masses EXTREMITIES: Normal range of motion, no edema. No clubbing or cyanosis. No cords, erythema, or tenderness NEUROLOGICAL: Cranial nerves II through XII grossly intact. Normal speech, normal gait. Motor and sensation intact SKIN: Warm, dry, normal turgor, no rashes or lesions noted. Heart Score/ECG Review - ECG Impressions Comment:: EKG raed 18:32- NSR 69 bpm, no acute ST/T changes Medical Decision Making - Medical Decision Making 12/09/19 18:35 Symptoms likely due to a viral illness (flu and RSV currently prevalent in the area). He presented to the ED mainly because he was checking his symptoms online and came across renal failure, then became concerned (counseled him that this does not fit his clinical picture). CXR to r/o pna. EKG is normal. Will treat with analgesic and neb treatment. Likely DC home. 12/09/19 18:57 Pt reports relief s/p neb treatment. CXR with no focal consolidation. Stable for DC home. Discharge - Discharge Information Problems reviewed: Yes Clinical Impression/Diagnosis: Viral syndrome Condition: Stable Disposition: HOME - Admission No - Follow up/Referral - Patient Discharge Instructions Patient Printed Discharge Instructions: DI for Influenza -- Adult, DI for Viral Syndrome - Post Discharge Activity
[2019-12-09] MEDS ORDERED: IBUPROFEN 600 MG TABLET (FP) PO ONE ×4 (18:17→18:33)
[2019-12-09] MEDS ORDERED: ALBUTEROL SO4 2.5/IPRATROPIUM 0.5 INH SOL 3 ML VIAL.NEB. NEB ONE ×2 (18:17→18:30)
--- NOTE | 2019-12-10 12:50 | EKG ---
Test Reason : Blood Pressure : / mmHG Vent. Rate : 069 BPM Atrial Rate : 069 BPM P-R Int : 142 ms QRS Dur : 082 ms QT Int : 376 ms P-R-T Axes : 034 056 032 degrees QTc Int : 402 ms NORMAL SINUS RHYTHM NORMAL ECG WHEN COMPARED WITH ECG OF 18-APR-2019 04:53, NO SIGNIFICANT CHANGE WAS FOUND Confirmed by PATSY THAPA MD ([id number]) on 12/10/2019 12:50:03 PM Referred By: DR CARVALHO Confirmed By:PATSY THAPA MD
== END 2019-12-09 19:06 | disposition home or self-care (01) ==
LOC: FER 17:48
PROC: 3E0F7GC Introduction of Other Therapeutic Substance into Respiratory Tract, Via Natural or Artificial Opening (ICD-10-PCS; principal; 2019-12-09)
DX: B34.9 Viral infection, unspecified (principal); I10 Essential (primary) hypertension; K21.9 Gastro-esophageal reflux disease without esophagitis
CPT/HCPCS: 71045-TC-FY; 93005; 99283-25

== ENCOUNTER 2024-04-22 18:49 | Emergency (ER) | payer OTHER ==
[2024-04-22 19:10] VITALS: BMI 31.5
[2024-04-22] MEDS: AMPICILLIN NA/SULBACTAM NA 1.5 GM in SODIUM CHLORIDE 100 ML IVPB ONE (20:18)
[2024-04-22] MEDS ORDERED: AMPICILLIN NA/SULBACTAM NA 3 GM/100 ML BAG IVPB ONE (20:19)
[2024-04-22] MEDS: AMPICILLIN NA/SULBACTAM NA 3 GM in SODIUM CHLORIDE 100 ML IVPB ONE (20:39)
[2024-04-22 20:54] LABS: BASO % 0.5 % (0-2.0); EOS % 2.1 % (0-4.5); HEMATOCRIT 42.4 % (35.4-49); HEMOGLOBIN 14.3 GM/dL (11.7-16.9); LYMPH % 18.8 % (8-40); MCH 29.7 pg (25.7-33.7); MCHC 33.7 g/dl (32.0-35.9); MEAN PLT VOLUME 7.6 fl (7.5-11.1); MONO % 9.5 % (3.8-10.2); NEUT % 69.1 % (42.8-82.8); PLATELET COUNT 365 10^3/uL (134-434); RBC 4.82 M/mm3 (4.00-5.60); RDW 14.1 % (11.9-15.9); WHITE BLOOD COUNT 11.5 K/mm3 (4.0-10.0)
[2024-04-22 21:00] LABS: INR 1.02 (0.83-1.09); PROTHROMBIN TIME (PATIENT) 11.5 SEC (9.7-13.0)
[2024-04-22 21:03] LABS: ACTIVATED PTT 30.4 SECONDS (25.2-36.5)
[2024-04-22 21:13] LABS: POTASSIUM 4.6 mmol/L (3.5-5.1)
[2024-04-22 21:15] LABS: CALCIUM 9.3 mg/dL (8.5-10.1)
[2024-04-22 21:16] LABS: ALBUMIN 4.4 g/dl (3.4-5.0); BLOOD UREA NITROGEN 17.3 mg/dL (7-18)
[2024-04-22 21:19] LABS: CREATININE 0.8 mg/dL (0.55-1.3)
[2024-04-22 21:20] LABS: BILIRUBIN,TOTAL 0.3 mg/dL (0.2-1); TOT PROT 7.9 g/dl (6.4-8.2)
[2024-04-22 21:55] LABS: ERYTHROCYTE SEDIMENTATION RATE 15 mm/hr (0-10)
[2024-04-22 22:18] VITALS: BP 132/95; PULSE 107; RESP 70; TEMP 98.5
== END 2024-04-22 23:01 | disposition short-term general hospital (02) ==
LOC: JERFT 18:49 → JER 18:49
DX: R51.9 Headache, unspecified (principal); R22.0 Localized swelling, mass and lump, head; K04.7 Periapical abscess without sinus; Z20.822 Contact with and (suspected) exposure to COVID-19
CPT/HCPCS: 0241U-QW; 36415; 70491-TC; 80053; 85025; 85610; 85651; 85730; 86140; 99285-25; Q9967